=== PATIENT | male | born 1955 | race Caucasian/White ===

== ENCOUNTER 2016-09-28 10:33 | Day surgery (SDC) | payer BC ==
[2016-09-23 17:06] LABS: BASOPHILS 0.1 %; BASOPHILS ABSOLUTE 0.01 10/3/uL (0.0-0.16); EOSINOPHILS 0.3 %; EOSINOPHILS ABSOLUTE 0.03 10/3/uL (0.0-0.53); IMMATURE GRANULOCYTES 0.1 %; IMMATURE GRANULOCYTES ABSOLUTE 0.01 10/3/uL (0.0-0.11); LYMPHOCYTES 16.7 %; LYMPHOCYTES ABSOLUTE 1.46 10/3/uL (0.67-4.30); MEAN CORPUS HGB CONC 34.5 g/dL (32.0-36.0); MEAN CORPUSCULAR HEMOGLOB 30.7 pg (26.0-34.0); MEAN PLATELET VOLUME 10.2 fL (9.2-13.0); MONOCYTES 4.8 %; MONOCYTES ABSOLUTE 0.42 10/3/uL (0.21-1.20); NEUTROPHILS ABSOLUTE 6.83 10/3/uL (2.02-8.40); PLATELET COUNT 161 10/3/uL (150-400); RBC DISTRIBUTION WIDTH 13.8 % (12.0-16.0); RED CELL COUNT 4.63 10/6/uL (4.7-6.1)
[2016-09-23 17:07] LABS: HEMATOCRIT 41.2 % (40.0-51.0); HEMOGLOBIN 14.2 g/dL (13.6-17.8); MANUAL DIFF NO %; WHITE BLOOD CELLS 8.8 10/3/uL (4.5-10.5)
[2016-09-23 17:34] LABS: BUN (BLOOD UREA NITROGEN) 21 MG/DL (6-23); CALCIUM, SERUM 9.2 MG/DL (8.5-10.4); CHLORIDE, SERUM 105 MMOL/L (96-112); CO2 (CARBON DIOXIDE) 29 MMOL/L (24-34); CREATININE 0.89 MG/DL (0.70-1.30); GFR AFRICAN AMERICAN 105 ML/MIN (>=60); GFR NON AFRICAN AMERICAN 91 ML/MIN (>=60); GLUCOSE, SERUM 136 MG/DL (60-99); POTASSIUM, SERUM 4.4 MMOL/L (3.5-5.3)
[2016-09-23 17:35] LABS: SODIUM, SERUM 143 MMOL/L (135-148)
[2016-09-23 17:56] LABS: PROTIME (NOT ORD) 13.2 SEC (12.0-14.5)
--- NOTE | ~2016-09-28 | OP ---
Record Of Operation [facility] [address] [place]. [address] NAME: SUYAPA HOLT : 51 STATUS : [facility]#: [id number] AGE: 61 ADM/REG DATE : 09/28/16 MR#: [id number] REPORT SERV DATE: 10/01/16 DICTATED BY: THUY MCFADDEN DATE: 10/01/16 REPORT STATUS : Draft TRANSCRIBED BY: MODZurdo DATE: 10/01/16 DATE OF PROCEDURE: 09/28/2016 PREOPERATIVE DIAGNOSIS: Bilateral nasal polyposis and chronic rhinosinusitis. POSTOPERATIVE DIAGNOSIS: Bilateral nasal polyposis and chronic rhinosinusitis. OPERATIVE PROCEDURE PERFORMED: 1. Bilateral endoscopic ethmoidectomy. 2. Bilateral endoscopic inferior turbinoplasty. 3. Bilateral maxillary antrostomies. 4. Bilateral nasal polypectomy. INDICATIONS AND SIGNIFICANT HISTORY: The patient is a 61-year-old male with significant history of nasal airway obstruction and nasal polyposis. Polyps have decreased slightly with oral steroid therapy and topical nasal steroid therapy, but the patient continues to have presence of polyps and obstructive symptoms. He was felt to benefit from endoscopic sinus surgery and was scheduled for such. OPERATIVE PROCEDURE AND FINDINGS: After informed consent was obtained, the patient was brought to the operating room and placed on the operating table in supine position. At which point, general endotracheal anesthesia was induced by the Anesthesia Service and the nose was decongested with topical Afrin pledgets. The middle meatus were injected with approximately 2 mL of 2% lidocaine 1:100,000 epinephrine bilaterally. Next, attention was turned to the right naris where right middle meatus polyposis was removed with a suction shaver. Ethmoid bulla was pierced with the suction shaver and the ethmoids were opened anteriorly to posteriorly along the skull base. Attention was then turned toward the right maxillary sinus where right uncinate process was divided with a sickle knife and horizontal portion was avulsed with a straight grasping forceps. Suction shaver was then used to enlarge the natural right maxillary sinus opening. Attention was then turned toward the left side where a large left nasal polyp was seen in the nasal cavity. This was removed with a suction shaver and ethmoidectomies and maxillary antrostomies were performed opening individual ethmoid cells and removing the uncinate process along the left maxillary sinus and enlarging the natural opening. Attention was then turned toward the inferior turbinates where inferior turbinoplasty was performed with a suction shaver. The head of the right inferior turbinate was pierced with a suction shaver and submucous dissection was performed. This was completed on the left side as well. Next, a Boies septal displacer was used to medialize and then lateralize the inferior turbinate and Propel sinus stents were placed in bilateral ethmoid beds. The patient was then turned back toward anesthesia, aroused from anesthesia, and taken to the postanesthesia care unit in satisfactory condition. COMPLICATIONS: None. ESTIMATED BLOOD LOSS: Less than 20 mL. IV FLUIDS: Per Anesthesia. Record Of Operation [address] [place]. [address] NAME: SUYAPA HOLT : 51 STATUS : [facility]#: [id number] AGE: 61 ADM/REG DATE : 09/28/16 MR#: [id number] REPORT SERV DATE: 10/01/16 DICTATED BY: THUY MCFADDEN DATE: 10/01/16 REPORT STATUS : Draft TRANSCRIBED BY: LEROY DATE: 10/01/16 VIKTORIA/LEROY Thuy Mcfadden M.D. / [id number] CC: Jackie Duron M.D.
[~2016-09-28 10:33] MED LIST: FOSAMAX70 MG PO; HALF81 PO; MULTIPLE VIT PO; P10 PO; PRAVACHOL40 MG PO; VITAMIN D2000 UNIT PO
== END 2016-09-28 15:47 | disposition home or self-care (01) ==
LOC: SDC 10:33
PROVIDERS: Otolaryngology
PROC: 099Q4ZZ Drainage of Right Maxillary Sinus, Percutaneous Endoscopic Approach (ICD-10-PCS; 2016-09-28)
PROC: 099R4ZZ Drainage of Left Maxillary Sinus, Percutaneous Endoscopic Approach (ICD-10-PCS; 2016-09-28)
PROC: 09TL4ZZ Resection of Nasal Turbinate, Percutaneous Endoscopic Approach (ICD-10-PCS; 2016-09-28)
PROC: 09BU4ZZ Excision of Right Ethmoid Sinus, Percutaneous Endoscopic Approach (ICD-10-PCS; principal; 2016-09-28 12:00)
PROC: 09BV4ZZ Excision of Left Ethmoid Sinus, Percutaneous Endoscopic Approach (ICD-10-PCS; 2016-09-28 12:00)
DX: J32.9 Chronic sinusitis, unspecified (principal); J34.89 Other specified disorders of nose and nasal sinuses; J33.9 Nasal polyp, unspecified; K21.9 Gastro-esophageal reflux disease without esophagitis; E78.5 Hyperlipidemia, unspecified; M19.90 Unspecified osteoarthritis, unspecified site; J45.909 Unspecified asthma, uncomplicated
CPT/HCPCS: 80048; 85025; 85610; 85730; 88305; 93005; A9270-GY; J0690; J2250; J2405; J2710; J3010